=== PATIENT | female | born 1990 | race Caucasian/White ===

== ENCOUNTER 2021-02-13 16:45 | Inpatient (IN) | payer BC ==
[~2021-02-13] VITALS: Ht 160 cm; Wt 72.1 kg
[2021-02-13 17:55] LABS: RED BLOOD COUNT 3.7 M/UL (4.00-5.10); WHITE BLOOD COUNT 8.5 K/UL (4.5-11.0)
[2021-02-14] MEDS ORDERED: IBUPROFEN600 MG PO (17:01)
[2021-02-14] MEDS ORDERED: COLACE 100MG C100 MG PO (17:01)
[2021-02-15 05:45] LABS: HEMOGLOBIN 11.2 gm/dl (12.3-15.3)
== END 2021-02-16 15:07 | disposition home or self-care (01) | DRG 807 ==
LOC: GENOP 16:45 → CDU 16:58 → OB 16:58
PROVIDERS: ADMIT Obstetrics & Gynecology
PROC: 10E0XZZ Delivery of Products of Conception, External Approach (ICD-10-PCS; principal; 2021-02-13)
PROC: 10907ZC Drainage of Amniotic Fluid, Therapeutic from Products of Conception, Via Natural or Artificial Opening (ICD-10-PCS; 2021-02-13)
PROC: 3E033VJ Introduction of Other Hormone into Peripheral Vein, Percutaneous Approach (ICD-10-PCS; 2021-02-13)
PROC: 4A1HXCZ Monitoring of Products of Conception, Cardiac Rate, External Approach (ICD-10-PCS; 2021-02-13)
PROC: 0UQMXZZ Repair Vulva, External Approach (ICD-10-PCS; 2021-02-13)
DX: O70.0 First degree perineal laceration during delivery (principal); Z37.0 Single live birth; Z80.3 Family history of malignant neoplasm of breast; Z20.822 Contact with and (suspected) exposure to COVID-19; Z88.1 Allergy status to other antibiotic agents; Z3A.39 39 weeks gestation of pregnancy; Z88.0 Allergy status to penicillin; Z88.2 Allergy status to sulfonamides
CPT/HCPCS: 36415; 81001; 85014; 85018; 85025; 85461; 86850; 86900; 86901; J2590; J2790; J7120